=== PATIENT | female | born 1955 | race Caucasian/White ===

== ENCOUNTER 2017-02-16 21:17 | Emergency (ER) | payer OTHER ==
[2017-02-16 21:21] VITALS: TEMP 98.5; BMI 24.5
--- NOTE | 2017-02-16 22:10 | PDOC ---
History of Present Illness - General History Source: Patient Exam Limitations: No Limitations - History of Present Illness Initial Comments: 02/16/17 22:46 The patient is a 61-year-old female with no significant past medical history, and presents to the emergency department with nausea, vomiting, diarrhea, abdominal pain, and back pain for 2 days. She reports she was on a cruise to [place], and began to feel sharp abdominal pain and dizziness immediately after drinking a gunter colada in [place]. She reports she took a plane this morning from [place] and experienced nausea, non-bloody vomiting, and non-bloody diarrhea the whole ride. She also notes having severe diffuse back pain and subjective fever. She states she cannot keep anything down currently. She denies any sick contacts, mosquito bites, rashes, or ingesting raw food on the trip. The patient denies chest pain, shortness of breath, headache and dizziness. The patient denies chills or constipation. The patient denies dysuria, frequency, urgency and hematuria. Allergies: NKDA Past Surgical History: None reported Social History:No toxic habits reported PCP: Dr. Agusto Wynn <Madhuri Givens - Last Filed: 02/16/17 22:47> <Beckie Mon - Last Filed: 02/17/17 05:35> - General Chief Complaint: Vomiting/Diarrhea Stated Complaint: PAIN Time Seen by Provider: 02/16/17 21:31 Past History <Madhuri Givens - Last Filed: 02/16/17 22:47> - Past Medical History HTN: Yes - Psycho/Social/Smoking Cessation Hx Suicidal Ideation: No Smoking History: Never smoked <Beckie Mon - Last Filed: 02/17/17 05:35> - Past Medical History Allergies/Adverse Reactions: Allergies Allergy/AdvReac Type Severity Reaction Status Date / Time No Known Allergies Allergy Unverified 02/16/17 21:20 Home Medications: Ambulatory Orders Metronidazole [Flagyl -] 250 mg PO TID #21 tablet 02/17/17 Review of Systems - Review of Systems Able to Perform ROS?: Yes Comments:: 02/16/17 22:46 CONSTITUTIONAL: Present: (+) subjective fever Absent: chills, diaphoresis, generalized weakness, malaise, loss of appetite HEENT: Absent: rhinorrhea, nasal congestion, throat pain, throat swelling, difficulty swallowing, mouth swelling, ear pain, eye pain, visual changes CARDIOVASCULAR: Absent: chest pain, syncope, palpitations, irregular heart rate, lightheadedness , peripheral edema RESPIRATORY: Absent: cough, shortness of breath, dyspnea with exertion, orthopnea, wheezing, stridor, hemoptysis GASTROINTESTINAL: Present: (+) abdominal pain, (+) nausea, (+) vomiting, (+) diarrhea Absent: abdominal distension, constipation, melena, hematochezia GENITOURINARY: Absent: dysuria, frequency, urgency, hesitancy, hematuria, flank pain, genital pain MUSCULOSKELETAL: Present: (+) back pain Absent: arthralgia, joint swelling SKIN: Absent: rash, itching, pallor HEMATOLOGIC/IMMUNOLOGIC: Absent: easy bleeding, easy bruising, lymphadenopathy, frequent infections ENDOCRINE: Absent: unexplained weight gain, unexplained weight loss, heat intolerance, cold intolerance NEUROLOGIC: Absent: headache, focal weakness or paresthesias, dizziness, unsteady gait, seizure, mental status changes, bladder or bowel incontinence PSYCHIATRIC: Absent: anxiety, depression, suicidal or homicidal ideation, hallucinations. <Madhuri Givens - Last Filed: 02/16/17 22:47> *Physical Exam - Vital Signs Last Vital Signs Temp Pulse Resp BP Pulse Ox 98.5 F 116 H 20 101/71 99 02/16/17 21:19 02/16/17 21:19 02/16/17 21:19 02/16/17 21:19 02/16/17 21:19 - Physical Exam Comments: 02/16/17 22:46 GENERAL: (+) Febrile. Well developed, well nourished. Awake and alert. No acute distress. No rigors. HEENT: Normocephalic, atraumatic. PERRLA, EOMI. No conjunctival pallor. Sclera are non- icteric. Moist mucous membranes. Oropharynx is clear. NECK: Supple. Full ROM. No JVD. Carotid pulses 2+ and symmetric, without bruits. No thyromegaly. No lymphadenopathy. CARDIOVASCULAR: (+) Tachycardic. Regular rhythm. No murmurs, rubs, or gallops. Distal pulses are 2+ and symmetric. PULMONARY: No evidence of respiratory distress. Lungs clear to auscultation bilaterally. No wheezing, rales or rhonchi. ABDOMINAL: Soft. Non-tender. Non-distended. No rebound or guarding. No organomegaly. Normoactive bowel sounds. MUSCULOSKELETAL (+) Some back muscles aches. Normal range of motion at all joints. No bony deformities or tenderness. No CVA tenderness. No joint pain. EXTREMITIES: No cyanosis. No clubbing. No edema. No calf tenderness. SKIN: Warm and dry. Normal capillary refill. No rashes or bites. No jaundice. NEUROLOGICAL: Alert, awake, appropriate. Cranial nerves 2-12 intact. No deficits to light touch and temperature in face, upper extremities and lower extremities. No motor deficits in the in face, upper extremities and lower extremities. Normoreflexic in the upper and lower extremities. Normal speech. Toes are down- going bilaterally. Gait is normal without ataxia. PSYCHIATRIC: Cooperative. Good eye contact. Appropriate mood and affect. <Madhuri Givens - Last Filed: 02/16/17 22:47> - Vital Signs Last Vital Signs Temp Pulse Resp BP Pulse Ox 98.5 F 116 H 20 101/71 99 02/16/17 21:19 02/16/17 21:19 02/16/17 21:19 02/16/17 21:19 02/16/17 21:19 <Beckie Mon - Last Filed: 02/17/17 05:35> ED Treatment Course - LABORATORY CBC & Chemistry Diagram: 02/16/17 22:28 02/16/17 22:28 - ADDITIONAL ORDERS Additional order review: 02/16/17 22:28 RBC 4.67 MCV 88.6 MCHC 33.1 RDW 13.8 MPV 8.7 Neutrophils % 88.9 H Lymphocytes % 5.4 L Monocytes % 5.5 Eosinophils % 0.1 Basophils % 0.1 - Medications Given in the ED: ED Medications Discontinued Medications Generic Name Dose Route Start Last Admin Trade Name Freq PRN Reason Stop Dose Admin Acetaminophen 1,000 mg 02/16/17 22:12 02/16/17 22:15 Ofirmev Injection - IVPB 02/16/17 22:13 1,000 mg ONCE ONE Administration Ketorolac Tromethamine 30 mg 02/16/17 22:11 02/16/17 22:15 Toradol Injection - IVPUSH 02/16/17 22:12 30 mg ONCE ONE Administration Sodium Chloride 1,000 ml 02/16/17 22:11 02/16/17 22:15 Normal Saline - IV 02/16/17 22:12 1,000 ml ONCE ONE Administration <Madhuri Givens - Last Filed: 02/16/17 22:47> - LABORATORY CBC & Chemistry Diagram: 02/16/17 22:28 02/16/17 22:28 <Beckie Mon - Last Filed: 02/17/17 05:35> Medical Decision Making - Medical Decision Making 02/16/17 22:25 Pt came from [place] with vomiting and diarrhea that [place] Pt states there was ice in the drink, and she likely had a reaction to the local water/bacteria/parasites. She has had vomiting and diarrhea Thurs night, Fri, and Sat on her flight from [place] back to [place]. Pt comes to the ER with tachycardia, dehydration, Muscle pains, 02/17/17 05:26 Pt received 2 L of NSS and her HR is now 90s; she is vastly improved at this time. SHe will be sent home with flagyl TID and she will be asked to follow with PMNahomy Perez for stool culture and further referral to her GI doc. <Beckie Mon - Last Filed: 02/17/17 05:35> *DC/Admit/Observation/Transfer - Attestations Scribe Attestion: 02/16/17 22:47 Documentation prepared by Madhuri Givens, acting as chief medical physicist for Beckie Mon MD. <Madhuri Givens - Last Filed: 02/16/17 22:47> - Discharge Dispostion Admit: No <Beckie Mon - Last Filed: 02/17/17 05:35> Diagnosis at time of Disposition: Vomiting and diarrhea - Discharge Dispostion Disposition: HOME Condition at time of disposition: Improved - Prescriptions Prescriptions: Metronidazole [Flagyl -] 250 mg PO TID #21 tablet - Referrals Referrals: Agusto Wynn MD [Primary Care Provider] - - Patient Instructions Printed Discharge Instructions: DI for Vomiting -- Adult, Traveler's Diarrhea: Don't Let It Ruin Your Vacation, Probiotics May Decrease Intensity and Duration of Diarrhea Due to Infection
[2017-02-16] MEDS ORDERED: FAMOTIDINE 20 MG/50 ML IVPB 50 ML IVPB ONE ×2 (22:11→22:46)
[2017-02-16] MEDS ORDERED: SODIUM CHLORIDE 0.9% 1000 ML INFUS.BAG IV ONE (22:11)
[2017-02-16] MEDS ORDERED: KETOROLAC TROMETHAMINE 30 MG/1 ML VIAL IVPUSH ONE (22:11)
[2017-02-16] MEDS ORDERED: ACETAMINOPHEN 1000 MG/100 ML VIAL (NON FORMULARY) IVPB ONE (22:12)
[2017-02-16] MEDS ORDERED: ACETAMINOPHEN INJECTION 100 ML IVPB ONE (22:13)
[2017-02-16] MEDS ORDERED: KETOROLAC TROMETHAMINE 30 MG/1 ML VIAL ONE (22:13)
[2017-02-16] MEDS ORDERED: METRONIDAZOLE 500 MG PREMIXED 100 ML IVPB ONE ×2 (22:19→22:46)
[2017-02-16 22:37] LABS: BASOPHIL 0.1 % (0-2.0); EOSINOPHIL 0.1 % (0-4.5); MCH 29.3 pg (25.7-33.7); MCHC 33.1 g/dl (32.0-36.0); MEAN CELL VOLUME 88.6 fl (80-96); MEAN PLT VOLUME 8.7 fl (7.5-11.1); NEUTROPHILS 88.9 % (42.8-82.8); PLATELET COUNT 159 K/MM3 (134-434); RDW 13.8 % (11.6-15.6); WHITE BLOOD COUNT 9.7 K/mm3 (4.0-10.0)
[2017-02-16 23:21] LABS: ALBUMIN 3.8 g/dl (3.4-5.0); ALK PHOS 124 U/L (45-117); ANION GAP 8 (8-16); BILIRUBIN,TOTAL 0.5 mg/dL (0.2-1.0); CO2 26 mmol/L (21-32); CREATININE 0.7 mg/dL (0.55-1.02); GLUCOSE,RANDOM 128 mg/dL (74-106); SGOT/AST 22 U/L (15-37); SGPT/ALT 28 U/L (12-78); TOT PROT 7.3 g/dl (6.4-8.2)
[2017-02-16 23:59] LABS: URINE APPEARANCE CLOUDY; URINE BILIRUBIN NEGATIVE (NEGATIVE); URINE BLOOD NEGATIVE (NEGATIVE); URINE COLOR YELLOW; URINE GLUCOSE (UA) NEGATIVE (NEGATIVE); URINE KETONE NEGATIVE (NEGATIVE); URINE LEUK ESTERASE NEGATIVE (NEGATIVE); URINE NITRITE NEGATIVE (NEGATIVE); URINE PROTEIN NEGATIVE (NEGATIVE); URINE UROBILINOGEN NEGATIVE mg/dL (0.2-1.0)
[2017-02-17] MEDS ORDERED: morphine CARPU-JECT 2 MG/1 ML DISP.SYRIN IVPUSH ONE (00:37)
[2017-02-17] MEDS ORDERED: SODIUM CHLORIDE 0.9% 500 ML INFUS.BAG IV ONE (00:37)
[2017-02-17] MEDS ORDERED: MAGNESIUM SULF 50% (8.12 MEQ/2 ML-1 GM VIAL) IVPB ONE (00:37)
[2017-02-17] MEDS ORDERED: MAGNESIUM SULF 50% (8.12 MEQ/2 ML-1 GM VIAL) ONE (01:03)
[2017-02-17] MEDS ORDERED: morphine CARPU-JECT 4 MG/1 ML DISP.SYRIN ONE (01:03)
[2017-02-17 03:46] VITALS: BP 117/60; PULSE 92
--- NOTE | 2017-02-18 09:17 | EKG ---
Test Reason : Blood Pressure : / mmHG Vent. Rate : 104 BPM Atrial Rate : 104 BPM P-R Int : 168 ms QRS Dur : 102 ms QT Int : 340 ms P-R-T Axes : 055 042 007 degrees QTc Int : 447 ms SINUS TACHYCARDIA ANTERIOR INFARCT , AGE UNDETERMINED ABNORMAL ECG NO PREVIOUS ECGS AVAILABLE Confirmed by RUDY RAMSEY MD ([id number]) on 02/18/2017 9:17:13 AM Referred By: Confirmed By:RUDY RAMSEY MD
== END 2017-02-17 03:46 | disposition home or self-care (01) ==
LOC: JER 21:17
PROC: 3E03329 Introduction of Other Anti-infective into Peripheral Vein, Percutaneous Approach (ICD-10-PCS; principal; 2017-02-16)
PROC: 3E033GC Introduction of Other Therapeutic Substance into Peripheral Vein, Percutaneous Approach (ICD-10-PCS; 2017-02-16)
PROC: 3E033NZ Introduction of Analgesics, Hypnotics, Sedatives into Peripheral Vein, Percutaneous Approach (ICD-10-PCS; 2017-02-16)
PROC: 3E0333Z Introduction of Anti-inflammatory into Peripheral Vein, Percutaneous Approach (ICD-10-PCS; 2017-02-16)
PROC: 3E033NZ Introduction of Analgesics, Hypnotics, Sedatives into Peripheral Vein, Percutaneous Approach (ICD-10-PCS; 2017-02-16)
PROC: 3E033GC Introduction of Other Therapeutic Substance into Peripheral Vein, Percutaneous Approach (ICD-10-PCS; 2017-02-16)
DX: R19.8 Other specified symptoms and signs involving the digestive system and abdomen (principal)
CPT/HCPCS: 36415; 71020-TC; 80053; 81003; 82150; 83690; 85025; 93005; 93010; 99282-25

== ENCOUNTER 2022-06-13 04:36 | Day surgery (SDC) | payer OTHER ==
[2022-06-11 15:43] VITALS: BMI 24.9
[2022-06-13] MEDS ORDERED: TETRACAINE/BENZOCAINE/BUTAMBEN 20 GM SPR TP ONE (08:52)
[2022-06-13 09:16] VITALS: TEMP 97.7
[2022-06-13 11:40] VITALS: BP 115/64; PULSE 84; RESP 15
== END 2022-06-13 10:44 | disposition home or self-care (01) ==
LOC: JASU-ENDO 04:36
PROVIDERS: ATTEND Internal Medicine
PROC: 0DJ08ZZ Inspection of Upper Intestinal Tract, Via Natural or Artificial Opening Endoscopic (ICD-10-PCS; principal; 2022-06-13 08:45)
DX: Z53.8 Procedure and treatment not carried out for other reasons (principal)